=== PATIENT | male | born 2000 | race Hispanic/Latino ===

== ENCOUNTER 2022-12-27 15:03 | Emergency (ER) | payer BC ==
[~2022-12-27] VITALS: Ht 165.1 cm; Wt 54.5 kg
[2022-12-27] MEDS ORDERED: IBUPROFEN 600 MG TAB PO STA (15:33)
[2022-12-27 17:52] VITALS: O2SAT 100
[2022-12-27] MEDS ORDERED: NAPROSYN500 MG PO (18:09)
[2022-12-27] MEDS ORDERED: CYCLOBENZAPRINE10 MG PO (18:10)
== END 2022-12-27 18:23 | disposition home or self-care (01) ==
LOC: FSED 15:30
DX: S39.012A Strain of muscle, fascia and tendon of lower back, initial encounter (principal); M62.830 Muscle spasm of back
CPT/HCPCS: 72110; 99284